=== PATIENT | male | born 1955 | race African-American/Black ===

== ENCOUNTER 2020-10-15 00:01 | Emergency (ER) | payer MEDICAID ==
[~2020-10-15] VITALS: Ht 180.3 cm; Wt 84.0 kg
[2020-10-15 02:30] VITALS: BP 155/99
== END 2020-10-15 02:30 | disposition home or self-care (01) ==
LOC: ER 00:01
DX: S83.91XA Sprain of unspecified site of right knee, initial encounter (principal); I10 Essential (primary) hypertension; W01.0XXA Fall on same level from slipping, tripping and stumbling without subsequent striking against object, initial encounter; Y93.9 Activity, unspecified; Y92.9 Unspecified place or not applicable
CPT/HCPCS: 73562; 99283

== ENCOUNTER 2021-09-05 10:55 | Emergency (ER) | payer MEDICARE, MEDICAID ==
[~2021-09-05] VITALS: Ht 182.9 cm; Wt 80.0 kg
[2021-09-05 11:03] VITALS: BP 142/87
== END 2021-09-05 22:10 | disposition home or self-care (01) ==
LOC: ER 10:55
DX: M79.605 Pain in left leg (principal); I10 Essential (primary) hypertension; Z88.8 Allergy status to other drugs, medicaments and biological substances
CPT/HCPCS: 93971; 99284

== ENCOUNTER 2021-11-30 16:41 | Emergency (ER) | payer MEDICARE, MEDICAID ==
[~2021-11-30] VITALS: Ht 180.3 cm; Wt 81.0 kg
[2021-11-30] MEDS ORDERED: MECLIZINE 25MG TABLET PO ONE (18:30)
[2021-11-30] MEDS ORDERED: MECL-159 MT (19:35)
[2021-11-30 19:55] VITALS: BP 122/85
== END 2021-11-30 19:55 | disposition home or self-care (01) ==
LOC: ER 16:41
DX: R55 Syncope and collapse (principal); I10 Essential (primary) hypertension; M19.90 Unspecified osteoarthritis, unspecified site; Z88.8 Allergy status to other drugs, medicaments and biological substances
CPT/HCPCS: 93005; 99283; J8597

== ENCOUNTER 2022-07-04 02:45 | Emergency (ER) | payer MEDICARE, MEDICAID ==
[~2022-07-04] VITALS: Ht 180.3 cm; Wt 86.0 kg
[~2022-07-04 02:45] MED LIST: MECL-159 MT
[2022-07-04 03:22] LABS: CLARITY URINE CLEAR (CLEAR); COLOR URINE YELLOW (YELLOW); KETONES URINE NEGATIVE (NEGATIVE); LEUKOCYTE ESTERASE URINE NEGATIVE (NEGATIVE); NITRITE URINE NEGATIVE (NEGATIVE); OCCULT BLOOD URINE 3+ (NEGATIVE); PROTEIN URINE NEGATIVE (NEGATIVE); SPECIFIC GRAVITY URINE 1.018 (1.005-1.030)
[2022-07-04 03:25] LABS: CHLORIDE 107 mEq/L (98-107)
[2022-07-04] MEDS ORDERED: ONDANSETRON HCL 4MG/2ML INJ IV NR (04:00)
[2022-07-04] MEDS ORDERED: MORPHINE SULFATE 4 MG/ML CPJ (NOT FOR IM USE) IV NR (04:00)
[2022-07-04] MEDS ORDERED: KETOROLAC 30MG/ML VIAL IV NR (04:00)
[2022-07-04 04:18] LABS: BASOPHILS % 0.6 % (0.0-2.0); EOSINOPHILS % 2.3 % (0.0-5.0); HEMOGLOBIN. 15.8 g/dL (14.0-18.0); LYMPHOCYTES % 27.9 % (20.0-50.0); MEAN CORPUSCULAR HEMOGLOBIN 31.5 pg (28.0-32.0); MEAN CORPUSCULAR VOLUME 87.7 fL (80.0-94.0); MEAN PLATELET VOLUME 9.2 fl (7.4-10.4); MONOCYTES % 10.4 % (2.0-8.0); NEUTROPHILS % 58.8 % (40.0-76.0); RED BLOOD CELL COUNT 5.02 mill/uL (4.7-6.1); RED CELL DISTRIBUTION WIDTH 13.6 % (11.6-14.6)
[2022-07-04 05:15] LABS: PLATELET 63 x1000/uL (130-400)
[2022-07-04] MEDS ORDERED: IBUP-2029 MT (06:20)
[2022-07-04] MEDS ORDERED: ONDA4TAB11 PO ×3 (06:20→06:22)
[2022-07-04] MEDS ORDERED: TRAM50TA3 MT (06:20)
[2022-07-04 06:30] VITALS: BP 142/84
== END 2022-07-04 06:58 | disposition home or self-care (01) ==
LOC: ER 02:45
DX: N20.0 Calculus of kidney (principal); I10 Essential (primary) hypertension
CPT/HCPCS: 36415; 71045; 74176; 80053; 81003; 83880; 84484; 85025; 93005; 96374; 96375; 99285; J1885; J2270; J2405

== ENCOUNTER → 2022-11-14 | Outpatient (CLI) | payer MEDICARE, MEDICAID ==
[~2022-11-14] MED LIST changes: +IBUP-2029 MT; +IOHEXOL-350 100 ML BOTTLE ONE; -MECL-159 MT; +MECL-299 MT; +ONDA4TAB11 PO; +TRAM50TA3 MT
== END | disposition home or self-care (01) ==
LOC: CT 10:24
PROVIDERS: ATTEND Urology Pediatric Urology
DX: N28.1 Cyst of kidney, acquired (principal); R35.1 Nocturia; N40.3 Nodular prostate with lower urinary tract symptoms; M47.816 Spondylosis without myelopathy or radiculopathy, lumbar region
CPT/HCPCS: 74178; Q9967

== ENCOUNTER 2024-07-19 10:19 | Emergency (ER) | payer MEDICARE, MEDICAID ==
[~2024-07-19] VITALS: Ht 177.8 cm; Wt 91.0 kg
[~2024-07-19 10:19] MED LIST changes: -IOHEXOL-350 100 ML BOTTLE ONE; +ONDA-239 PO; -ONDA4TAB11 PO
[2024-07-19 10:21] VITALS: O2SAT 97
[2024-07-19 10:51] LABS: BASOPHILS % 0.7 % (0.0-2.0); DIFFERENTIAL COMMENT 0; EOSINOPHILS % 1.1 % (0.0-5.0); HEMATOCRIT. 43.9 % (42.0-52.0); HEMOGLOBIN. 15.7 g/dL (14.0-18.0); LYMPHOCYTES % 19.5 % (20.0-50.0); MEAN CORPUSCULAR HEMOGLOBIN 31.7 pg (28.0-32.0); MEAN CORPUSCULAR HGB CONC 35.8 g/dL (31.0-37.0); MEAN CORPUSCULAR VOLUME 88.5 fL (80.0-94.0); MONOCYTES % 9.7 % (2.0-8.0); PLATELET 142 x1000/uL (130-400); RED BLOOD CELL COUNT 4.95 mill/uL (4.7-6.1); RED CELL DISTRIBUTION WIDTH 13.8 % (11.6-14.6); WHITE BLOOD COUNT 4.9 x1000/uL (4.5-11.0)
[2024-07-19 11:02] LABS: CHLORIDE 107 mEq/L (98-107); POTASSIUM 3.4 mEq/L (3.5-5.1); SODIUM 140 mEq/L (136-145)
[2024-07-19 11:03] LABS: CARBON DIOXIDE 26 mEq/L (21-32)
[2024-07-19 11:05] LABS: INR 1.1; PROTHROMBIN TIME 11.4 sec (9.6-11.0)
[2024-07-19 11:08] LABS: CREATININE 0.8 mg/dL (0.6-1.3); GLUCOSE 103 mg/dL (70-105); UREA NITROGEN BLOOD 11 mg/dL (9-23)
[2024-07-19 11:09] LABS: TROPONIN I HIGH SENSITIVITY 21 ng/L (3.0-53)
[2024-07-19] MEDS: ATENOLOL 25MG TABLET PO ONE (11:49)
[2024-07-19] MEDS: ASPIRIN 325MG EC TABLET PO ONE (12:53)
[2024-07-19] MEDS ORDERED: ASPI-1406 MT (13:22)
[2024-07-19] MEDS: POTASSIUM CHLORIDE 20MEQ/PACKET PO ONE (13:27)
[2024-07-19 13:37] VITALS: BP 165/77; PULSE 65; RESP 18; TEMP 36.9; O2SAT 97
[2024-07-19] MEDS ORDERED: IOHEXOL-350 100 ML BOTTLE ONE (13:50)
== END 2024-07-19 13:37 | disposition home or self-care (01) ==
LOC: ER 10:19
DX: G45.9 Transient cerebral ischemic attack, unspecified (principal); I10 Essential (primary) hypertension; Z79.82 Long term (current) use of aspirin; Z88.8 Allergy status to other drugs, medicaments and biological substances
CPT/HCPCS: 99285; 70496; 71045; 80048; 83880; 85025; 85610; 84484; 36415; 70498; 70450; 93005; Q9967

== ENCOUNTER 2024-10-02 10:08 | Emergency (ER) | payer MEDICARE, MEDICAID ==
[~2024-10-02] VITALS: Ht 180.3 cm; Wt 87.0 kg
[~2024-10-02 10:08] MED LIST changes: +ASPI-1406 MT
[2024-10-02 10:13] VITALS: O2SAT 98
[2024-10-02] MEDS: ONDANSETRON HCL 4MG/2ML INJ IV ONE (11:15)
[2024-10-02] MEDS: MECLIZINE 25MG TABLET PO ONE (11:15)
[2024-10-02] MEDS: SODIUM CHLORIDE 0.9% 1,000 ML IV ONE (11:15)
[2024-10-02 11:20] LABS: CREATININE 0.9 mg/dL (0.6-1.3)
[2024-10-02 11:21] LABS: UREA NITROGEN BLOOD 13 mg/dL (9-23)
[2024-10-02 11:22] LABS: ASPARTATE AMINOTRANSFERASE 21 IU/L (<34)
[2024-10-02 11:23] LABS: BILIRUBIN DIRECT 0.3 mg/dL (<=3.0); BILIRUBIN TOTAL 0.9 mg/dL (0.1-1.0); PROTEIN TOTAL 7.5 g/dL (6.0-8.3)
[2024-10-02 11:31] LABS: BASOPHILS % 0.4 % (0.0-2.0); EOSINOPHILS % 0.2 % (0.0-5.0); HEMATOCRIT. 45.6 % (42.0-52.0); HEMOGLOBIN. 16.6 g/dL (14.0-18.0); LYMPHOCYTES % 7.8 % (20.0-50.0); MONOCYTES % 4.7 % (2.0-8.0); NEUTROPHILS % 86.9 % (40.0-76.0); RED BLOOD CELL COUNT 5.19 mill/uL (4.7-6.1); RED CELL DISTRIBUTION WIDTH 13.1 % (11.6-14.6)
[2024-10-02 11:55] LABS: MEAN PLATELET VOLUME 11.0 fl (7.4-10.4)
[2024-10-02 11:56] LABS: PLATELET 123 x1000/uL (130-400)
[2024-10-02] MEDS ORDERED: MECL-299 MT (13:07)
[2024-10-02] MEDS ORDERED: ONDA4TAB50 MT (13:07)
[2024-10-02 13:30] VITALS: BP 145/84; PULSE 57; RESP 15; TEMP 36.7; O2SAT 97
== END 2024-10-02 13:41 | disposition home or self-care (01) ==
LOC: ER 10:08
DX: R42 Dizziness and giddiness (principal); I10 Essential (primary) hypertension; Z88.8 Allergy status to other drugs, medicaments and biological substances; Z79.82 Long term (current) use of aspirin; Z79.899 Other long term (current) drug therapy
CPT/HCPCS: 99284; 96374; 96361; 80076; 80048; 85025; 36415; 93005; J8597; J2405; J7030